=== PATIENT | female | born 2000 | race Caucasian/White ===

== ENCOUNTER 2023-11-26 08:52 | Emergency (ER) | payer BC ==
[~2023-11-26] VITALS: Ht 152.4 cm; Wt 63.6 kg
[~2023-11-26 08:52] MED LIST: CEPHALEXIN500 M1 PO; PROTONIX 40MG T40 MG PO
[2023-11-26 08:56] VITALS: TEMP 97.9
[2023-11-26] MEDS ORDERED: fentaNYL 50 MCG/ML 2 ML VIAL IV ONE (09:45)
[2023-11-26] MEDS ORDERED: Pantoprazole 40 MG in NS 10 ML IV ONE (09:45)
[2023-11-26] MEDS ORDERED: Famotidine 20 MG TAB PO ONE (09:45)
[2023-11-26] MEDS ORDERED: NS 1,000 ML IV ONE (09:45)
[2023-11-26 09:53] LABS: BASO # 0.1 K/mm3 (0.0-0.2); BASO % 0.9 % (0.0-2.0); EOS % 0.7 % (0.0-4.0); GRAN % 54.6 % (42.2-75.2); HEMATOCRIT 45.8 % (37.0-47.0); HEMOGLOBIN 14.6 g/dl (12.5-16.0); MEAN CELL VOLUME 97 fl (80.0-100.0); MEAN CORPUSCULAR HEMOGLOBIN 31 pg (27-31); MEAN CORPUSCULAR HGB CONC 32 g/dl (33.0-37.0); MEAN PLATELET VOLUME 11.9 fl (7.4-10.4); MONO # 0.4 K/mm3 (0.1-0.6); MONO % 7.6 % (1.7-9.3); PLATELET COUNT 295 K/mm3 (130-400); RED BLOOD COUNT 4.74 M/mm3 (4.10-5.30); REDCELL DISTRIBUTION WIDTH-CV 13.1 % (11.5-14.5)
[2023-11-26 10:08] LABS: ALBUMIN 4.3 g/dL (3.5-5.0); C-REACTIVE PROTEIN 0.22 mg/dL (0.00-0.50); CALCIUM 9.7 mg/dL (8.4-10.2); CREATININE, serum 0.72 mg/dL (0.57-1.11); POTASSIUM 3.8 mEq/L (3.5-4.5); TOTAL PROTEIN 7.8 g/dl (6.2-8.1)
[2023-11-26 10:26] LABS: COLLECTION METHOD CLEAN CATCH
[2023-11-26 10:30] LABS: BILIRUBIN,TOTAL 0.8 mg/dL (0.2-1.2)
[2023-11-26 10:53] LABS: PH 6.5 (5.0-8.5); URINE APPEARANCE CLEAR (CLEAR/HAZY); URINE BLOOD 3+ (NEGATIVE); URINE COLOR YELLOW (YELLOW); URINE GLUCOSE NEGATIVE (NEGATIVE); URINE KETONE NEGATIVE (NEGATIVE); URINE NITRATE NEGATIVE (NEGATIVE); URINE PROTEIN(semi-quant) NEGATIVE (NEGATIVE); URINE UROBILINOGEN 0.2 E.U/dL (0.2-1.0)
[2023-11-26] MEDS ORDERED: CARAFATE 1GM1 G PO (14:16)
[2023-11-26] MEDS ORDERED: NORCO 325 MG-51 TAB PO (14:16)
[2023-11-26 14:48] VITALS: BP 143/94; PULSE 73
[2023-11-28] MEDS ORDERED: LEVAQUIN 5500 MG/TA1 PO (12:09)
== END 2023-11-26 14:50 | disposition home or self-care (01) ==
LOC: COL.ER 08:52
PROVIDERS: Emergency Medicine
DX: K25.9 Gastric ulcer, unspecified as acute or chronic, without hemorrhage or perforation (principal)
CPT/HCPCS: C9113; J3010; J7030

== ENCOUNTER 2023-12-18 12:35 | Emergency (ER) | payer BC ==
[~2023-12-18] VITALS: Ht 165.1 cm; Wt 62.3 kg
[~2023-12-18 12:35] MED LIST changes: +CARAFATE 1GM1 G PO; +LEVAQUIN 5500 MG/TA1 PO; +NORCO 325 MG-51 TAB PO
[2023-12-18 12:42] VITALS: TEMP 98.5
[2023-12-18] MEDS ORDERED: HYDROmorphone 0.5 MG/0.5 ML SYRINGE IV ONE (13:15)
[2023-12-18] MEDS ORDERED: NS 1,000 ML IV ONE (13:15)
[2023-12-18] MEDS ORDERED: Ondansetron 4 MG/2 ML VIAL IV ONE (13:15)
[2023-12-18 13:32] LABS: BASO # 0.1 K/mm3 (0.0-0.2); BASO % 0.5 % (0.0-2.0); EOS % 0.2 % (0.0-4.0); GRAN # 8.5 K/mm3 (1.4-6.5); GRAN % 79.7 % (42.2-75.2); HEMATOCRIT 43.5 % (37.0-47.0); HEMOGLOBIN 14.5 g/dl (12.5-16.0); LYMPH # 1.6 K/mm3 (1.2-3.4); LYMPH % 15.2 % (20.0-51.0); MEAN CELL VOLUME 94 fl (80.0-100.0); MEAN CORPUSCULAR HEMOGLOBIN 31 pg (27-31); MEAN CORPUSCULAR HGB CONC 33 g/dl (33.0-37.0); MEAN PLATELET VOLUME 12.2 fl (7.4-10.4); MONO # 0.4 K/mm3 (0.1-0.6); MONO % 4.1 % (1.7-9.3); PLATELET COUNT 254 K/mm3 (130-400); RED BLOOD COUNT 4.65 M/mm3 (4.10-5.30); REDCELL DISTRIBUTION WIDTH-CV 12.8 % (11.5-14.5)
[2023-12-18 13:49] LABS: BILIRUBIN,TOTAL 0.7 mg/dL (0.2-1.2); C-REACTIVE PROTEIN 0.8 mg/dL (0.00-0.50); CALCIUM 9.9 mg/dL (8.4-10.2); CREATININE, serum 0.8 mg/dL (0.57-1.11); POTASSIUM 4.1 mEq/L (3.5-4.5); TOTAL PROTEIN 7.7 g/dl (6.2-8.1)
[2023-12-18] MEDS ORDERED: Iohexol 300 - 100 ML VIAL IV ONE (14:09)
[2023-12-18] MEDS ORDERED: NS 100 ML IV SCH (14:10)
[2023-12-18 16:11] VITALS: BP 111/77; PULSE 83
== END 2023-12-18 16:14 | disposition home or self-care (01) ==
LOC: COL.ER 12:35
PROVIDERS: Nurse Practitioner
DX: K62.89 Other specified diseases of anus and rectum (principal); K59.00 Constipation, unspecified
CPT/HCPCS: J1170; J2405; J7030; Q9967

== ENCOUNTER 2024-02-04 08:59 | Day surgery (SDC) | payer BC ==
[2024-02-04] VITALS (8 sets, daily range): BP systolic 106–128; BP diastolic 69–93; PULSE 54–68; TEMP 97–98.1
[~2024-02-04] VITALS: Ht 152.4 cm; Wt 62.5 kg
[~2024-02-04 08:59] MED LIST changes: +LR 1,000 ML IV SCH; +Meclizine 25 MG TAB PO SCH; +Scopolamine 1 MG Delivered 3-Day PATCH TD SCH
[2024-02-04] MEDS ORDERED: Ondansetron 4 MG/2 ML VIAL ONE (09:41)
[2024-02-04] MEDS ORDERED: Rocuronium 50 MG/5 ML Multi-Dose VIAL ONE (09:41)
[2024-02-04] MEDS ORDERED: Lidocaine PF 2% (20 MG/ML) 5 ML VIAL ONE (09:41)
[2024-02-04] MEDS ORDERED: dexAMETHasone 10 MG/ML VIAL ONE (09:41)
[2024-02-04] MEDS ORDERED: NS 10 ML IV ONE (09:41)
[2024-02-04] MEDS ORDERED: fentaNYL 50 MCG/ML 2 ML VIAL ONE (10:25)
[2024-02-04] MEDS ORDERED: Ondansetron 4 MG/2 ML VIAL IV PRN ×2 (11:15)
[2024-02-04] MEDS ORDERED: Morphine 4 MG/ML VIAL IV PRN (11:15)
[2024-02-04] MEDS ORDERED: HYDROmorphone 1 MG/1 ML SYRINGE [PACU/SDC ONLY] IV PRN (11:15)
[2024-02-04] MEDS ORDERED: fentaNYL 50 MCG/ML 1 ML SYRINGE/VIAL [PACU/SDC ONLY] IV PRN (11:15)
[2024-02-04] MEDS ORDERED: NORCO 325 MG-51 TAB PO (11:16)
[2024-02-04] MEDS ORDERED: Ketorolac 15 MG/ML VIAL IV SCH (11:40)
--- NOTE | 2024-02-04 12:15 | NUR ---
PATIENT RETURNED TO ROOM 6 VIA CART, ALERT AND ORIENTED X3. STATES PAIN IS TOLERABLE TO ABDOMEN (RATING 4/10), WARM BLANKET IN PLACE. DENIES NAUSEA AND SHORTNESS OF BREATH. BREATHING REGULAR AND UNLABORED ON ROOM AIR. SKIN WARM AND DRY. RIGHT HAND IV IN PLACE. SEE CHART FOR VITAL SIGNS. NURSE HANDOFF COMPLETED IN ROOM WITH INSPECTION OF SURGICAL INCISIONS. 3 ABODMINAL INCISIONS WITH BANDAIDS OVER EACH. NO VISIBLE DRAINAGE. ALL 3 BANDAIDS ARE DRY AND INTACT. PATIENT HAS NO COMPLAINTS AND HAD APPLE JUICE, SALTINES AND CHEESE. NO DYSPHAGIA. CALL LIGHT IN REACH. MOTHER, TRUE, PRESENT IN ROOM.
--- NOTE | 2024-02-04 12:56 | NUR ---
PATIENT REPORTED INTOLERABLE PAIN TO ABDOMEN, RATING 7/10. DISCUSSED PAIN MANAGEMENT OPTIONS WITH PATIENT. SEE EMAR FOR FENTANYL ADMINISTERED. PATIENT HAD JULI CRACKERS. RESTING IN CART. CALL LIGHT IN REACH.
--- NOTE | 2024-02-04 13:17 | NUR ---
PATIENT STATED THAT THE FENTANYL HELPED WITH HER PAIN, BUT WOULD LIKE TO HAVE NORCO FOR PAIN BEFORE SHE IS DISCHARGED. SEE EMAR FOR NORCO ADMINISTERED.
--- NOTE | 2024-02-04 13:53 | NUR ---
1323: DISCHARGE TEACHING COMPLETED WITH PRINTED EDUCATION AND INSTRUCTIONS SENT HOME WITH PATIENT. FOLLOW UP APPOINTMENT DATE, TIME AND LOCATION COMMUNICATED TO PATIENT AND TRUE. PATIENT AND TRUE VERBALIZED UNDERSTANDING. 1328: PATIENT AMBULATED TO RESTROOM WITH STEADY GAIT AND VOIDED. 1347: PATIENT IS TOLERATING FOOD/DRINK, PAIN RATING TOLERABLE 2/10 TO ABDOMEN. ALL 3 ABDOMINAL BANDAIDS CLEAN, DRY AND INTACT. IV REMOVED. GAUZE AND COBAN PLACED OVER SITE. 1353: PATIENT DISCHARGED HOME WITH TRUE TRANSPORT.
== END 2024-02-04 13:53 | disposition home or self-care (01) ==
LOC: SDCO 08:59
DX: K80.10 Calculus of gallbladder with chronic cholecystitis without obstruction (principal)
CPT/HCPCS: J0665; J0690; J1100; J1170; J1885; J2405; J2704; J3010; J7120

== ENCOUNTER 2024-07-09 13:10 | Observation (INO) | payer BC ==
[~2024-07-09] VITALS: Ht 152.4 cm; Wt 68.7 kg
[~2024-07-09 13:10] MED LIST changes: -LR 1,000 ML IV SCH; -Meclizine 25 MG TAB PO SCH; -Scopolamine 1 MG Delivered 3-Day PATCH TD SCH
[2024-07-09] MEDS ORDERED: NS 1,000 ML IV ONE (14:45)
[2024-07-09] MEDS ORDERED: Ketorolac 15 MG/ML VIAL IV ONE (14:45)
[2024-07-09] MEDS ORDERED: diphenhydrAMINE 50 MG/ML 1 ML VIAL IV ONE (14:45)
[2024-07-09 15:27] LABS: BASO # 0.1 K/mm3 (0.0-0.2); BASO % 0.4 % (0.0-2.0); EOS # 0.1 K/mm3 (0.0-0.7); EOS % 0.5 % (0.0-4.0); GRAN # 7.2 K/mm3 (1.4-6.5); GRAN % 63.6 % (42.2-75.2); HEMATOCRIT 43.6 % (37.0-47.0); HEMOGLOBIN 13.9 g/dl (12.5-16.0); LYMPH # 3.3 K/mm3 (1.2-3.4); LYMPH % 29.3 % (20.0-51.0); MEAN CELL VOLUME 96 fl (80.0-100.0); MEAN CORPUSCULAR HEMOGLOBIN 31 pg (27-31); MEAN CORPUSCULAR HGB CONC 32 g/dl (33.0-37.0); MEAN PLATELET VOLUME 11.3 fl (7.4-10.4); MONO # 0.7 K/mm3 (0.1-0.6); MONO % 5.9 % (1.7-9.3); PLATELET COUNT 301 K/mm3 (130-400); RED BLOOD COUNT 4.54 M/mm3 (4.10-5.30)
[2024-07-09 15:46] LABS: BILIRUBIN,TOTAL 0.4 mg/dL (0.2-1.2); C-REACTIVE PROTEIN 0.52 mg/dL (0.00-0.50); CALCIUM 9.2 mg/dL (8.4-10.2); CREATININE, serum 0.71 mg/dL (0.57-1.11); POTASSIUM 3.7 mEq/L (3.5-4.5); TOTAL PROTEIN 7.5 g/dl (6.2-8.1)
[2024-07-09] MEDS ORDERED: Acetaminophen 325 MG TAB PO PRN (18:15)
[2024-07-09] MEDS ORDERED: Famotidine 20 MG TAB PO SCH (21:00)
[2024-07-09 21:58] VITALS: BP 134/90; PULSE 80; TEMP 98.3
[2024-07-09 22:00] VITALS: BP_SYST 134
--- NOTE | 2024-07-09 22:30 | NUR ---
pt REQUEST THAT SHE IS MADE A NO INFO pt. pt WILL GIVE HER MEDICAL INFOMATION NUMBER TO THOSE SHE IS OK WITH KNOWING SHE IS HERE AND IS OK WITH HAVING MEDICAL INFORAMTION ABOUT HER. ADMISSIONS, MEDICAL CHARGE NURSE AND ELECTRICIAN RESEARCH NOTIFIED.
[2024-07-09 23:02] VITALS: BP 121/76; PULSE 93; TEMP 98.1
[2024-07-09 23:30] VITALS: BP_SYST 121
[2024-07-10 03:01] VITALS: BP 109/70; PULSE 89; TEMP 98.4
[2024-07-10 04:00] VITALS: BP_SYST 109
--- NOTE | 2024-07-10 05:00 | NUR ---
pt ARRIVED TO THE MEDICAL FLOOR AROUND 2145HRS TO ROOM 319. pt A&O X 4; VSS; O2 RA. pt COMPLAINED OF A HEADACHE. pt GIVEN TYLENOL ABOUT 30MIN PRIOR TO TRANSFER TO UNIT. AROUND AN HOUR LATER, pt STATED HER HEADACHE WAS GONE. pt DENIES CHEST PAIN, PALPITATIONS, SOB, N,V,D OR DIZZINESS. ADMISSIONS ASSESSMENT COMPLETE. MED REC COMPLETE (NOTE: pt STATES SHE DOES NOT TAKE ANY PRESCRIPTION MEDICATIONS. pt ONLY TOOK OVER THE COUNTER TYLENOL AND MOTRIN FOR HER HEADACHE). pt ORIENTED TO ROOM AND HOSPITAL POLICY. POC DISCUSSED WITH pt. pt VERBALIZED UNDERSTANDING. ALL QUESTIONS AND CONCERNS ADDRESSED. CALL LIGHT WITHIN REACH.
[2024-07-10] MEDS ORDERED: TYLENOL 500MG500 MG PO (06:24)
[2024-07-10] MEDS ORDERED: MOTRIN 200200 MG/TAB PO (06:26)
[2024-07-10 07:11] LABS: BASO # 0.1 K/mm3 (0.0-0.2); BASO % 0.6 % (0.0-2.0); EOS # 0.1 K/mm3 (0.0-0.7); EOS % 1.4 % (0.0-4.0); GRAN # 4.2 K/mm3 (1.4-6.5); GRAN % 53.4 % (42.2-75.2); HEMATOCRIT 40.9 % (37.0-47.0); HEMOGLOBIN 13.2 g/dl (12.5-16.0); LYMPH # 2.8 K/mm3 (1.2-3.4); MEAN CELL VOLUME 95 fl (80.0-100.0); MEAN CORPUSCULAR HEMOGLOBIN 31 pg (27-31); MEAN CORPUSCULAR HGB CONC 32 g/dl (33.0-37.0); MEAN PLATELET VOLUME 11.4 fl (7.4-10.4); MONO # 0.7 K/mm3 (0.1-0.6); MONO % 8.5 % (1.7-9.3); PLATELET COUNT 299 K/mm3 (130-400)
[2024-07-10 07:23] LABS: CALCIUM 8.5 mg/dL (8.4-10.2); CREATININE, serum 0.67 mg/dL (0.57-1.11)
--- NOTE | 2024-07-10 07:31 | NUR ---
PATIENT DOWN TO MRI VIA WHEELCHAIR. ALERT AND ORIENTED.
[2024-07-10] MEDS ORDERED: Gadoterate 15 ML VIAL IV ONE (07:39)
[2024-07-10 08:00] VITALS: BP 117/69; PULSE 56; TEMP 98.2
--- NOTE | 2024-07-10 08:15 | NUR ---
PATIENT BACK FROM MRI. ALERT AND ORIENTED. SITTING UP IN BED TALKING ON CELLPHONE.
[2024-07-10] MEDS ORDERED: NEXPLANON68 MG ID (08:50)
[2024-07-10] MEDS ORDERED: Influenza Virus Vaccine, Trivalent '24-25 0.5 ML SYRINGE IM SCH (09:00)
--- NOTE | 2024-07-10 09:52 | NUR ---
Initial visit; Patient thanked Activities Officer for looking in on her and offering Spiritual Care. Jessica, though using the phone stated she is doing much better and thanked Activities Officer for stopping by.
--- NOTE | 2024-07-10 10:08 | NUR ---
Manager State met with patient to discuss discharge planning. Patient lives alone in [place] and sees Dr. Tran for primary care. 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 Patient uses [facility] for medications and has no difficulties affording them. Patient does not use any DME and is independent with [facility]. Patient does not have DPOA-HC and is not interested in completing one at this time. Patient is not and has no children. Her next of kin is her mother, (ph#[phone]). Patient plans to return home at discharge. No unmet needs at this time. Discharge Plan: Home
[2024-07-10 12:00] VITALS: BP 124/78; PULSE 88; TEMP 99.1
[2024-07-10] MEDS ORDERED: diphenhydrAMINE 50 MG/ML 1 ML VIAL IV ONE (12:30)
[2024-07-10] MEDS ORDERED: Ketorolac 15 MG/ML VIAL IV ONE (12:30)
[2024-07-10 13:04] VITALS: BP_SYST 124
[2024-07-10] MEDS ORDERED: Iohexol 300 - 100 ML VIAL IV ONE (13:05)
[2024-07-10] MEDS ORDERED: NS 100 ML IV SCH (13:05)
--- NOTE | 2024-07-10 13:06 | NUR ---
PATIENT REPORTS HEADACHE COMING BACK. THIS RN ADMINISTERED PAIN MEDS PER OCT. PATIENT NOW GOING TO CT. ALERT AND ORIENTED.
--- NOTE | 2024-07-10 15:25 | NUR ---
THIS RN PROVIDED PATIENT WITH DISCHARGE EDUCATION AND INSTRUCTIONS. ALL QUESTIONS ANSWERED.
--- NOTE | 2024-07-10 15:37 | NUR ---
PATIENT ESCORTED OFF UNIT AT APPROX 1535. ALL BELONGINGS WITH PATIENT
--- NOTE | 2024-07-10 15:46 | NUR ---
land surveying survey worker attended multidisciplinary team meeting to discuss patient's progress and discharge plan. Plan is for patient to return home and all are in agreement. Discharge Plan: Home
== END 2024-07-10 15:25 | disposition home or self-care (01) ==
LOC: COL.ER 13:10 → MEDICAL 18:13 → EDBEDREQTM 20:49 → MEDICAL 07-10 15:25
PROVIDERS: Nurse Practitioner; Physician Assistant; ADMIT Internal Medicine
DX: R51.9 Headache, unspecified (principal); Q28.3 Other malformations of cerebral vessels
CPT/HCPCS: OP; A9575; G0008; G0378; J1200; J1885; J2765; J7030; Q9967